=== PATIENT | female | born 1995 | race Caucasian/White ===

== ENCOUNTER 2021-01-12 22:31 | Inpatient (IN) | payer BC ==
[2021-01-12] MEDS ORDERED: Acetaminophen 325 MG Tab PO PRN (23:22)
[2021-01-12] MEDS ORDERED: Sodium Chloride 0.9% 10 ML Syringe FLUSH PRN (23:22)
[2021-01-12] MEDS ORDERED: Nalbuphine 10 MG/1 ML Vial IVPUSH PRN (23:22)
[2021-01-12] MEDS ORDERED: Oxytocin/Lactated Ringers 10 UNIT/1,000 ML BAG IV SCH (23:30)
[2021-01-13] MEDS: Lactated Ringers 1,000 ML IV SCH ×3 (00:22→11:22)
--- NOTE | 2021-01-13 00:29 | PCM.LDHP ---
L&D History of Present Illness - General Date of Service: 01/13/21 Admit Problem/Dx: Patient Status Order with Admit Dx/Problem 01/12/21 23:22 Patient Status [ADT] Routine Admission Diagnosis/Problem Admission Diagnosis/Problem 40 weeks gestation of Source of Information: Patient History Limitations: Reports: No Limitations - History of Present Illness Introduction:: Yane Sanders is a 25-year-old -0-0-1 female at 40 weeks 3 days (CONTRERAS ) by LMP consistent with an 11-week ultrasound who presents in active labor. Patient reports that she had been having contractions that started on Thursday evening and have been somewhat consistent since then. She states that earlier this evening the contractions became very irregular and were about 2 to 5 minutes apart for several hours. She reports that the contractions were getting much stronger and she was having difficulty walking or talking through them. She denies any leaking of fluid or vaginal bleeding. She reports good movement Timing/Duration: Reports: intermittent (contractions every 2-5 minutes), getting worse (starting around 7 PM) Location, : Reports: Lower back, Pelvic Quality: Reports: Pressure, Throbbing Severity: Severe Associated Symptoms: Denies: vaginal bleeding, vaginal discharge, vaginal fluid Present Illness Comments:: Yane Sanders is a 25-year-old -0-0-1 female at 40 weeks 3 days (CONTRERAS ) by LMP consistent with an 11-week ultrasound who presents in active labor. She has had routine care with Dr. Wen starting at 11 weeks gestatio nal age. Her has been overall uncomplicated except she did have COVID-19 infection in mid June 2020. She received flu shot on 11/08/2020. She received Tdap on 12/19/2020. Her anatomy ultrasound was normal. She was GBS negative on evaluation on 12/06/2020. She did not have a repeat evaluation of her GBS swab since then. Her care is complicated by: * History of section with her first done for arrest of dilation at 3 cm * History of preeclampsia with severe features and was on made for several days after delivery and first . 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 G1: 08/20/2018, 39 weeks 5 days, primary section, 6 pounds 13 ounces, female , spinal for anesthesia, preeclampsia with severe features after delivery and was treated with magnesium for multiple days due to severe features G2: Current labs Blood type: B+ Antibody screen: Negative First trimester hematocrit/hemoglobin: 38.3%/12.8 on 06/21/2020 Platelets: 197 on 06/21/2020 Urine culture: Negative Rubella status: Immune Hepatitis B surface antigen: Negative RPR: Negative Hepatitis C: Negative HIV: Negative Gonorrhea: Negative Chlamydia: Negative Anatomy ultrasound: Normal anatomy ultrasound, 55th percentile on 09/05/2020, no evidence of placenta previa One hour glucose tolerance test: 116 Second trimester hematocrit/hemoglobin: 33.7/11.0 on 10/11/2020 Platelets: 220 on 10/11/2020 GBS status: Negative on 12/06/2020 - Related Data Allergies/Adverse Reactions: Allergies Allergy/AdvReac Type Severity Reaction Status Date / Time doxycycline Allergy Other Verified 08/19/18 09:35 Home Medications: Home Meds Azelaic Acid [Finacea] 50 gm TP ASDIRECTED 08/19/18 [History] Clindamycin Phosphate [Cleocin T] 1 applic TP DAILY 08/19/18 [History] Pnv No.95/Ferrous Fum/Folic AC [ Tablet] 1 tab PO DAILY 08/19/18 [History] Acetaminophen/oxyCODONE [Percocet 325-5 MG] 1 tab PO Q4H PRN tablet 08/23/18 [Rx] Ibuprofen [Motrin] 800 mg PO Q8H PRN tablet 08/23/18 [Rx] Labetalol [Normodyne] 400 mg PO Q6H #72 tab 08/26/18 [Rx] Past Medical History - Past Health History Medical/Surgical History: Denies Medical/Surgical History Cardiovascular History: Reports: None Respiratory History: Reports: Asthma (Sports induced) Other Respiratory History: exercise induced asthma, not on medication. 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: Reports: : 2 Para: 1 Psychiatric History: Reports: Anxiety Other Dermatologic History: Acne - Past Surgical History Other HEENT Surgeries/Procedures: [place] teeth 2012 Female Surgical History: Reports: Section (x1 for arrest of dilation at 3 cm) Social & Family History - Family History Family Medical History: No Pertinent Family History Cardiac: Reports: Bypass, Hypertension, NE Other OBGYN Family History: Patient is a quadruplet Other Endocrine/Metabolic Family History: 2 sister and brother all heavy Oncologic: Reports: Breast, Lung, Ovarian - Tobacco Use Tobacco Use Status *Q: Never Tobacco User Tobacco Use Within Last Twelve Months: No - Tobacco Core Measures Tobacco Use/Smoking Within Last 30 Days: No Smokeless Tobacco Use in Last 30 Days: No - Caffeine Use Caffeine Use: Reports: Soda - Alcohol Use Alcohol Use History: No - Living Situation & Occupation Living situation: Reports: ('s name is Jasvir) Occupation: Unemployed H&P Review of Systems - Review of Systems: Review Of Systems: See Below General: Denies: Fever, Chills, Malaise, Fatigue HEENT: Denies: Headaches, Rhinitis, Post Nasal Drip, Sinus Congestion, Sore Throat, Visual Changes Pulmonary: Denies: Shortness of Breath, Wheezing, Pleuritic Chest Pain, Cough Cardiovascular: Denies: Chest Pain, Palpitations, Dyspnea on Exertion, Orthopnea Gastrointestinal: Reports: Diarrhea (Reports that she has been having loose stools for the last week). Denies: Abdominal Pain, Constipation, Nausea, Vomiting Genitourinary: Denies: Dysuria, Frequency, Burning, Pain, Urgency Musculoskeletal: Reports: Back Pain (and hip pain of ) Skin: Denies: Rash, Lesions Psychiatric: Denies: Depression, Anxiety L&D Exam - Exam Exam: See Below - Vital Signs Weight: 71.214 kg - OB Specific Contraction Duration (sec): 45-75 Contraction Frequency (min): 2-4 Contraction Intensity: Strong Movement: Active Heart Tones: Present Heart Tones per Min: 125 (+15 x 15 accelerations, no decelerations) Heart Rate (FHR) Variability: Moderate (6-25 bpm) Presentation: Vertex (By bedside ultrasound) Estimated Weight: 6.5-7 pounds by Daniel - Antoine Score Antoine Score Cervix Position: Anterior Antoine Score Consistency: Soft Antoine Score Effacement: >80% (80%) Antoine Score Dilation: 3-4 cm (4 cm) Antoine Score Infant's Station: -1 ,0 (-1) Antoine Score Total: 11 - Exam General: Alert, Oriented HEENT: Conjunctiva Clear, EOMI Neck: Supple, Trachea Midline Lungs: Clear to Auscultation, Normal Respiratory Effort Cardiovascular: Regular Rate, Regular Rhythm GI/Abdominal Exam: Soft, Non-Tender, No Distention, Other (gravid). No: Guarding, Rigid, Rebound Genitourinary: Normal external exam Extremities: Normal Inspection, No Pedal Edema Skin: Warm, Dry, Intact Psychiatric: Alert, Normal Affect, Normal Mood - Patient Data Lab Results Last 24 hrs: Laboratory Results - last 24 hr 01/12/21 01/12/21 Range/Units 23:38 23:38 WBC 9.59 (3.98-10.04) K/mm3 RBC 4.09 (3.98-5.22) M/mm3 Hgb 13.1 D (11.2-15.7) gm/dl Hct 38.7 (34.1-44.9) % MCV 94.6 (79.4-94.8) fl MCH 32.0 (25.6-32.2) pg MCHC 33.9 (32.2-35.5) g/dl RDW Std Deviation 45.2 (36.4-46.3) fL Plt Count 201 (182-369) K/mm3 MPV 11.5 (9.4-12.3) fl Neut % (Auto) 76.3 H (34.0-71.1) % Lymph % (Auto) 14.4 L (19.3-51.7) % [place] % (Auto) 8.4 (4.7-12.5) % Eos % (Auto) 0.6 L (0.7-5.8) Baso % (Auto) 0.1 (0.1-1.2) % Neut # (Auto) 7.31 H (1.56-6.13) K/mm3 Lymph # (Auto) 1.38 (1.18-3.74) K/mm3 [place] # (Auto) 0.81 H (0.24-0.36) K/mm3 Eos # (Auto) 0.06 (0.04-0.36) K/mm3 Baso # (Auto) 0.01 (0.01-0.08) K/mm3 Sodium 140 (136-145) mEq/L Potassium 4.0 (3.5-5.1) mEq/L Chloride 104 (98-107) mEq/L Carbon Dioxide 23 (21-32) mEq/L Anion Gap 17.0 H (5-15) BUN 12 (7-18) mg/dL Creatinine 0.8 (0.55-1.02) mg/dL Est Cr Clr Drug Dosing 87.38 mL/min Estimated GFR (MDRD) > 60 (>60) mL/min BUN/Creatinine Ratio 15.0 (14-18) Glucose 88 (70-99) mg/dL Calcium 8.9 (8.5-10.1) mg/dL Total Bilirubin 0.4 (0.2-1.0) mg/dL AST 22 (15-37) U/L ALT 29 (14-59) U/L Alkaline Phosphatase 205 H (46-116) U/L Total Protein 6.5 (6.4-8.2) g/dl Albumin 3.0 L (3.4-5.0) g/dl Globulin 3.5 gm/dL Albumin/Globulin Ratio 0.9 L (1-2) Result Diagrams: 01/12/21 23:38 01/12/21 23:38 - Problem List (1) 40 weeks gestation of SNOMED Code(s): 34398371 ICD Code: Z3A.40 - 40 WEEKS GESTATION OF Status: Acute Current Visit: Yes (2) History of delivery SNOMED Code(s): 308816963 ICD Code: Z98.891 - HISTORY OF UTERINE SCAR FROM PREVIOUS SURGERY Status: Acute Current Visit: Yes (3) History of pre-eclampsia SNOMED Code(s): 144202847760210 ICD Code: Z87.59 - PERSONAL HISTORY OF COMP OF PREG, CHLDBRTH AND THE PUERP Status: Acute Current Visit: Yes (4) History of pre-eclampsia in prior , currently in third trimester SNOMED Code(s): 011030305094376, 01487243, 489425426361720 ICD Code: O09.293 - SUPRVSN OF PREG W POOR REPRODCTV OR OBSTET HX, THIRD TRI Status: Acute Current Visit: Yes Problem List Initiated/Reviewed/Updated: Yes Orders Last 24hrs: Active Orders 24 hr Category Date Time Status Patient Status [ADT] Routine ADT 01/12/21 23:22 Active Activity as Tolerated [RC] PFP Care 01/12/21 23:22 Active Communication Order [RC] ASDIRECTED Care 01/12/21 23:22 Active Heart Tones [RC] ASDIRECTED Care 01/12/21 23:23 Active Non Stress Test [RC] PER UNIT ROUTINE Care 01/12/21 23:22 Active Notify Provider Vital Signs [RC] PRN Care 01/12/21 23:23 Active Notify Provider [RC] PFP Care 01/12/21 23:22 Active Notify Provider [RC] PRN Care 01/12/21 23:22 Active Peripheral IV Care [RC] . DIRECTED Care 01/12/21 23:23 Active Pump Management, Intrathecal [RC] ASDIRECTED Care 01/12/21 23:23 Active Urinary Catheter Assessment [RC] ASDIRECTED Care 01/12/21 23:22 Active Vital Signs [RC] PER UNIT ROUTINE Care 01/12/21 23:22 Active Regular Diet [DIET] Diet 01/12/21 Dinner Active PROTEIN/CREATININE RATIO,URINE [URCHEM] Routine Lab 01/12/21 23:22 Ordered RAPID PLASMA REAGIN,RPR [CHEM] Routine Lab 01/12/21 23:38 Received TYPE AND SCREEN [BBK] Routine Lab 01/12/21 23:38 Received Acetaminophen [TylenoL] Med 01/12/21 23:22 Active 650 mg PO Q6H PRN Lactated Ringers [Ringers, Lactated] 1,000 ml Med 01/12/21 23:30 Active IV ASDIRECTED Nalbuphine [Nubain] Med 01/12/21 23:22 Active 10 mg IVPUSH Q2H PRN Oxytocin/Lactated Ringers [Pitocin in LR 10 Units/1,000 Med 01/12/21 23:30 Active ML] 10 unit in 1,000 ml IV .CONTINUOUS Sodium Chloride 0.9% [Saline Flush] Med 01/12/21 23:22 Active 10 ml FLUSH ASDIRECTED PRN Electronic Heart Tones Ext w TOCO [WOMSER] Oth 01/12/21 23:22 Ordered Routine Electronic Heart Tones Internal [WOMSER] Per Unit Oth 01/12/21 23:22 Ordered Routine Peripheral IV Insertion Adult [OM.PC] Routine Oth 01/12/21 23:22 Ordered Resuscitation Status Routine Resus Stat 01/12/21 23:22 Ordered Medication Orders Acetaminophen (Acetaminophen 325 Mg Tab) 650 mg PO Q6H PRN PRN Reason: Pain (Mild 1-3) and fever Oxytocin/Lactated Ringer's (Pitocin In Lr 10 Units/1,000 Ml) 10 unit in 1,000 mls @ 100 mls/hr IV .CONTINUOUS RANDAL Lactated Ringer's (Ringers, Lactated) 1,000 mls @ 100 mls/hr IV ASDIRECTED RANDAL Nalbuphine HCl (Nalbuphine 10 Mg/1 Ml Vial) 10 mg IVPUSH Q2H PRN PRN Reason: Pain Sodium Chloride (Sodium Chloride 0.9% 10 Ml Syringe) 10 ml FLUSH ASDIRECTED PRN PRN Reason: Keep Vein Open Assessment/Plan Comment:: Yane Sanders is a 25-year-old -0-0-1 female at 40 weeks 3 days (CONTRERAS 12- 21) with active labor with cervix dilated 4 cm with complicated by history of section and desires trial of labor after section and history of preeclampsia in previous Refer to observation for spontaneous labor with cervical dilation of 4 cm after she had been 0 cm in the clinic this week Start Pitocin for augmentation of labor if she does not have continuing cervical change Continuous monitoring Place IV and have Lactated Ringer's at 125 ml/hr May have small amounts of regular diet Activity as tolerated May have epidural as desired Plans to breast-feed after delivery Patient counseled on risks, benefits and alternatives of trial of labor after section versus repeat section. Patient desires to proceed with trial of labor after section and consent form was signed. Anticipate vaginal delivery unless otherwise indicated Juarez Bass MD 12:37 AM 01/13/2021
[2021-01-13] MEDS ORDERED: diphenhydrAMINE 50 MG/ML SDV IVPUSH PRN (01:58)
[2021-01-13] MEDS ORDERED: fentaNYL 100 MCG/2 ML SDV EPIDUR PRN (01:58)
[2021-01-13] MEDS ORDERED: ePHEDrine 50 MG/ML SDV IVPUSH PRN (01:58)
[2021-01-13] MEDS: Bupivacaine/fentaNYL/NS 100 ML Bag EPIDUR PRN ×2 (02:10→11:21)
--- NOTE | 2021-01-13 03:33 | PCM.PREANE ---
Preanesthetic Assessment - Anesthesia/Transfusion/Family Hx Anesthesia History: Prior Anesthesia Without Reaction Transfusion History: No Prior Transfusion(s) Intubation History: Unknown - Review of Systems General: No Symptoms Pulmonary: No Symptoms Cardiovascular: No Symptoms Gastrointestinal: No Symptoms Neurological: No Symptoms Other: Reports: None - Physical Assessment Vital Signs: Last Vital Signs Temp 98.0 F 01/12/21 23:22 Pulse 78 01/12/21 23:22 Resp 16 01/12/21 23:22 BP 137/90 01/12/21 23:22 Pulse Ox 99 01/12/21 23:22 Height: 1.6 m Weight: 71.214 kg ASA Class: 2 Mental Status: Alert & Oriented x3 Airway Class: Mallampati = 1 Dentition: Reports: Normal Dentition Thyro-Mental Finger Breadths: 3 Mouth Opening Finger Breadths: 3 ROM/Head Extension: Full Lungs: Clear to Auscultation, Normal Respiratory Effort Cardiovascular: Regular Rate, Regular Rhythm - Lab Values: Laboratory Last Values WBC 9.59 K/mm3 (3.98-10.04) 01/12/21 23:38 RBC 4.09 M/mm3 (3.98-5.22) 01/12/21 23:38 Hgb 13.1 gm/dl (11.2-15.7) D 01/12/21 23:38 Hct 38.7 % (34.1-44.9) 01/12/21 23:38 MCV 94.6 fl (79.4-94.8) 01/12/21 23:38 MCH 32.0 pg (25.6-32.2) 01/12/21 23:38 MCHC 33.9 g/dl (32.2-35.5) 01/12/21 23:38 RDW Std Deviation 45.2 fL (36.4-46.3) 01/12/21 23:38 Plt Count 201 K/mm3 (182-369) 01/12/21 23:38 MPV 11.5 fl (9.4-12.3) 01/12/21 23:38 Neut % (Auto) 76.3 % (34.0-71.1) H 01/12/21 23:38 Lymph % (Auto) 14.4 % (19.3-51.7) L 01/12/21 23:38 [place] % (Auto) 8.4 % (4.7-12.5) 01/12/21 23:38 Eos % (Auto) 0.6 (0.7-5.8) L 01/12/21 23:38 Baso % (Auto) 0.1 % (0.1-1.2) 01/12/21 23:38 Neut # (Auto) 7.31 K/mm3 (1.56-6.13) H 01/12/21 23:38 Lymph # (Auto) 1.38 K/mm3 (1.18-3.74) 01/12/21 23:38 [place] # (Auto) 0.81 K/mm3 (0.24-0.36) H 01/12/21 23:38 Eos # (Auto) 0.06 K/mm3 (0.04-0.36) 01/12/21 23:38 Baso # (Auto) 0.01 K/mm3 (0.01-0.08) 01/12/21 23:38 Sodium 140 mEq/L (136-145) 01/12/21 23:38 Potassium 4.0 mEq/L (3.5-5.1) 01/12/21 23:38 Chloride 104 mEq/L (98-107) 01/12/21 23:38 Carbon Dioxide 23 mEq/L (21-32) 01/12/21 23:38 Anion Gap 17.0 (5-15) H 01/12/21 23:38 BUN 12 mg/dL (7-18) 01/12/21 23:38 Creatinine 0.8 mg/dL (0.55-1.02) 01/12/21 23:38 Est Cr Clr Drug Dosing 87.38 mL/min 01/12/21 23:38 Estimated GFR (MDRD) > 60 mL/min (>60) 01/12/21 23:38 BUN/Creatinine Ratio 15.0 (14-18) 01/12/21 23:38 Glucose 88 mg/dL (70-99) 01/12/21 23:38 Calcium 8.9 mg/dL (8.5-10.1) 01/12/21 23:38 Total Bilirubin 0.4 mg/dL (0.2-1.0) 01/12/21 23:38 AST 22 U/L (15-37) 01/12/21 23:38 ALT 29 U/L (14-59) 01/12/21 23:38 Alkaline Phosphatase 205 U/L (46-116) H 01/12/21 23:38 Total Protein 6.5 g/dl (6.4-8.2) 01/12/21 23:38 Albumin 3.0 g/dl (3.4-5.0) L 01/12/21 23:38 Globulin 3.5 gm/dL 01/12/21 23:38 Albumin/Globulin Ratio 0.9 (1-2) L 01/12/21 23:38 Ur Random Creatinine 215.0 mg/dL (30.0-125.0) H 01/13/21 00:21 U Random Total Protein 40.3 mg/dL (0.0-11.8) H 01/13/21 00:21 Protein/Creatinin Ratio 187.4 mg/g (0-149) H 01/13/21 00:21 SARS-CoV-2 RNA (SENTHIL) Negative (NEGATIVE) 01/13/21 00:18 Blood Type B POSITIVE 01/12/21 23:38 Gel Antibody Screen Negative 01/12/21 23:38 - Allergies Allergies/Adverse Reactions: Allergies Allergy/AdvReac Type Severity Reaction Status Date / Time doxycycline Allergy Other Verified 08/19/18 09:35 - Acknowledgements Anesthesia Type Planned: Epidural Pt an Appropriate Candidate for the Planned Anesthesia: Yes Alternatives and Risks of Anesthesia Discussed w Pt/Guardian: Yes Pt/Guardian Understands and Agrees with Anesthesia Plan: Yes PreAnesthesia Questionnaire - Past Health History Medical/Surgical History: Denies Medical/Surgical History Cardiovascular History: Reports: None Respiratory History: Reports: Asthma Other Respiratory History: exercise induced asthma, not on medication. 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: Neurological History: Reports: None Psychiatric History: Reports: Anxiety Other Dermatologic History: Acne - Past Surgical History Other HEENT Surgeries/Procedures: [place] teeth 2012 Female Surgical History: Reports: Section (x1 for arrest of dilation at 3 cm) - SUBSTANCE USE Tobacco Use Status *Q: Never Tobacco User Tobacco Use Within Last Twelve Months: No Second Hand Smoke Exposure: No Recreational Drug Use History: No - HOME MEDS Home Medications: Home Meds Azelaic Acid [Finacea] 50 gm TP ASDIRECTED 08/19/18 [History] Clindamycin Phosphate [Cleocin T] 1 applic TP DAILY 08/19/18 [History] Pnv No.95/Ferrous Fum/Folic AC [ Tablet] 1 tab PO DAILY 08/19/18 [History] Acetaminophen/oxyCODONE [Percocet 325-5 MG] 1 tab PO Q4H PRN tablet 08/23/18 [Rx] Ibuprofen [Motrin] 800 mg PO Q8H PRN tablet 08/23/18 [Rx] Labetalol [Normodyne] 400 mg PO Q6H #72 tab 08/26/18 [Rx] - CURRENT (IN HOUSE) MEDS Current Meds: Current Medications Acetaminophen (Acetaminophen 325 Mg Tab) 650 mg PO Q6H PRN PRN Reason: Pain (Mild 1-3) and fever Diphenhydramine HCl (Diphenhydramine 50 Mg/Ml Sdv) 25 mg IVPUSH Q6H PRN PRN Reason: pruritis Ephedrine Sulfate (Ephedrine 50 Mg/Ml Sdv) 5 mg IVPUSH ASDIRECTED PRN PRN Reason: Hypotension Fentanyl (Fentanyl 100 Mcg/2 Ml Sdv) 100 mcg EPIDUR Q3H PRN PRN Reason: Pain Last Admin: 01/13/21 02:09 Dose: 100 mcg Documented by: Fentanyl/Bupivacaine HCl (Bupivacaine/Fentanyl/Ns 100 Ml Bag) 100 ml EPIDUR ASDIRECTED PRN PRN Reason: Pain Last Admin: 01/13/21 02:10 Dose: 100 ml Documented by: Oxytocin/Lactated Ringer's (Pitocin In Lr 10 Units/1,000 Ml) 10 unit in 1,000 mls @ 100 mls/hr IV .CONTINUOUS RANDAL Lactated Ringer's (Ringers, Lactated) 1,000 mls @ 100 mls/hr IV ASDIRECTED RANDAL Last Admin: 01/13/21 02:04 Dose: 100 mls/hr Documented by: Nalbuphine HCl (Nalbuphine 10 Mg/1 Ml Vial) 10 mg IVPUSH Q2H PRN PRN Reason: Pain Sodium Chloride (Sodium Chloride 0.9% 10 Ml Syringe) 10 ml FLUSH ASDIRECTED PRN PRN Reason: Keep Vein Open
[2021-01-13] MEDS ORDERED: Oxytocin/Lactated Ringers 10 UNIT/1,000 ML BAG IV SCH ×2 (04:45→20:41)
--- NOTE | 2021-01-13 09:33 | PCM.PNLD ---
Labor Progress Note - VS & Meds Vital Signs: Last Vital Signs Temp 36.7 C 01/12/21 23:22 Pulse 78 01/12/21 23:22 Resp 16 01/12/21 23:22 BP 137/90 01/12/21 23:22 Pulse Ox 99 01/12/21 23:22 Active Medications: Current Medications Acetaminophen (Acetaminophen 325 Mg Tab) 650 mg PO Q6H PRN PRN Reason: Pain (Mild 1-3) and fever Diphenhydramine HCl (Diphenhydramine 50 Mg/Ml Sdv) 25 mg IVPUSH Q6H PRN PRN Reason: pruritis Ephedrine Sulfate (Ephedrine 50 Mg/Ml Sdv) 5 mg IVPUSH ASDIRECTED PRN PRN Reason: Hypotension Fentanyl (Fentanyl 100 Mcg/2 Ml Sdv) 100 mcg EPIDUR Q3H PRN PRN Reason: Pain Last Admin: 01/13/21 02:09 Dose: 100 mcg Documented by: Fentanyl/Bupivacaine HCl (Bupivacaine/Fentanyl/Ns 100 Ml Bag) 100 ml EPIDUR ASDIRECTED PRN PRN Reason: Pain Last Admin: 01/13/21 02:10 Dose: 100 ml Documented by: Oxytocin/Lactated Ringer's (Pitocin In Lr 10 Units/1,000 Ml) 10 unit in 1,000 mls @ 100 mls/hr IV .CONTINUOUS RANDAL Lactated Ringer's (Ringers, Lactated) 1,000 mls @ 100 mls/hr IV ASDIRECTED RANDAL Last Admin: 01/13/21 02:04 Dose: 100 mls/hr Documented by: Oxytocin/Lactated Ringer's (Pitocin In Lr 10 Units/1,000 Ml) 10 unit in 1,000 mls @ 12 mls/hr IV TITRATE RANDAL; Protocol Last Titration: 01/13/21 05:35 Dose: 4 munits/min, 24 mls/hr Documented by: Nalbuphine HCl (Nalbuphine 10 Mg/1 Ml Vial) 10 mg IVPUSH Q2H PRN PRN Reason: Pain Sodium Chloride (Sodium Chloride 0.9% 10 Ml Syringe) 10 ml FLUSH ASDIRECTED PRN PRN Reason: Keep Vein Open - Uterine Contractions Contraction Frequency (min): 2-5 Contraction Duration (sec): 45-75 Contraction Intensity: Strong Uterine Resting Tone: Soft - Monitoring Monitor Mode: Doppler/Auscultation Heart Rate (FHR) Baseline: 130 Heart Rate (FHR) Variability: Moderate (6-25 bpm) Accelerations: Present, 15x15 Decelerations: Variable, Recurrent (>50% x 20 min) Strip Review: Category II - Vaginal Exam Dilation (cm): 7 Effacement (Percent): 90 Station: 1 Cervical Position: Anterior Sterile Vaginal Exam Performed By: Juarez Bass Vaginal Exam Comment: Patient noted to have small amount of bright red blood with cervical exam. Patient underwent artificial rupture of membranes with return of small amount of clear fluid. Mother and infant tolerated procedure without difficulty. - Labor Progress (Free Text) Labor Progress: Yane Sanders is a 25-year-old -0-0-1 female at 40 weeks 3 days undergoing trial of labor after section with spontaneous labor Patient underwent artificial rupture membranes with return of small amount of clear fluid. Mother and infant tolerated procedure without difficulty. Patient making good progress overnight Patient had epidural placed and then had slowing of her contractions Patient started on Pitocin for augmentation of labor Patient was having mild range blood pressures prior to placement of the epidural that resolved afterwards. She has not had any mild range or severe range blood pressures since placement of the epidural Suspect that the blood pressures were due to pain response Continuous monitoring Anticipate vaginal delivery unless otherwise indicated Juarez Bass MD 9:33 AM 01/13/2021
[2021-01-13] MEDS ORDERED: Ondansetron 4 MG/2 ML SDV IVPUSH PRN (09:44)
[2021-01-13] MEDS ORDERED: Lidocaine 1.5% with EPINEPHrine 1:200,000 5 ML Amp ONE (18:00)
[2021-01-13] MEDS ORDERED: Witch Hazel Medicated Pads 40/Jar TOP PRN (20:41)
[2021-01-13] MEDS ORDERED: Hydrocortisone Acetate 25 MG Supp RECTAL PRN (20:41)
[2021-01-13] MEDS ORDERED: Benzocaine/Menthol 20%-0.5% Spray 78 GM Cannister TOP PRN (20:41)
[2021-01-13] MEDS ORDERED: Acetaminophen 325 MG Tab PO PRN (20:41)
[2021-01-13] MEDS ORDERED: Magnesium Hydroxide 400 MG/5 ML Susp 30 ML Cup PO PRN (20:41)
--- NOTE | 2021-01-13 20:46 | PCM.DEL ---
L & D Note - General Info Date of Service: 01/13/21 Mother's Due Date: 01/10/21 - Delivery Note Labor: Spontaneous, Augmented by ARM, Augmented by Oxytocin Delivery Outcome: Livebirth Delivery Method: Spontaneous Vaginal Delivery-Single Infant Delivery Mode: Vacuum Extraction Presentation: Right Occiput Anterior (KELLY) Nuchal Cord: None Prep: Povidone-Iodine (Betadine Anesthesia Type: Epidural Amniotic Fluid Description: Meconium Stained (noted at time of delivery of ) Episiotomy Type: None Laceration: 2nd Degree (midline perineal, repaired with 3-0 Vicryl), Labial (left medial labia minora connecting to left vaginal sidewall, repaired with 4-0 Vicryl), Vaginal (2nd degree left vaginal sidewall connecting to left labia minora laceration, repaired with 3-0 Vicryl) Suture type: Vicryl Suture size: 3-0 Placenta: Intact, Spontaneous Cord: 3 Vessels Estimated Blood Loss: 700 : Suctioned, Bulb Syringe, Stimulated, Warmed, [place] Used, Warmer Used Provider: Carlos Wen Score 1 min: 8 Score 5 min: 9 Second Stage Interventions: Reports: Pushing, Squatting, Pushing, Stirrups/Leg Supports Delivery Comments (Free Text/Narrative):: Stage I: Yane Sanders was admitted for active labor. On admission her cervix was dilated to 4 cm. She was GBS negative. Patient was counseled on the risks and benefits of a trial of labor after section versus repeat section. Patient desired to proceed with trial of labor after section. Consents were signed in labor and delivery room #31. She was given an epidural for anesthesia. After she received the epidural her contractions became more infrequent and less intense. She was started on Pitocin for augmentation of labor. She had artificial rupture of membranes with return of small amount of clear fluid. She made slow progression throughout HD #2. She became complete and began pushing in the afternoon of HD #2. Stage II: Patient was pushing for approximately 3 hours and began noticing that she was having decreased effort with her pushes. Patient had been coached through pushing for additional effort during this time. There were also changes in positions that were attempted. Patient was counseled on options including continued pushing, vacuum extraction assistance or repeat section. Tae rasmussen was counseled on the risks and benefits of the vacuum extractor delivery including failure of the vacuum extractor for delivery, injury to the , cephalohematoma and subgaleal hemorrhage. Patient was also counseled on increased risk of laceration and shoulder dystocia. Patient stated understanding and desired to proceed with use of the vacuum extractor. Patient gave verbal consent to proceed with the vacuum extractor. The patient was examined and noted to be in +2 station with the in direct OA position. A Martinez type vacuum extractor was then placed on the head at the flexion point and suction was applied. Vacuum suction was applied to 600 mmHg. During the next contraction the patient began pushing and traction was applied to the vacuum extractor. Patient pushed 4 times during this contraction and the head was able to be delivered. There were no pop offs. The vacuum extractor was removed at this time. Vacuum was applied for a total of approximately 40 seconds. On 01/13/2021 she had a vacuum-assisted vaginal delivery after section of a live female at 19:07. Apgars of 8 & 9. Weight of 3650 g (8 lbs 0.7 oz). Length of 21.0 inches. There was no nuchal cord. was delivered in KELLY position. The cord was doubly clamped and cut by father the infant had approximately 60 seconds of life. Infant was placed on mother's abdomen initially and then taken to the warmer for further resuscitation. At time of delivery there was noted to be meconium stained fluid Stage III: She had a spontaneous delivery of an intact placenta in [facility]. Three vessel cord. She was given pitocin and fundal massage. She had a second-degree midline perineal laceration that was repaired with 3-0 Vicryl. She had a second-degree left vaginal sidewall laceration that was repaired with 3-0 Vicryl and a connecting left medial labia minora laceration that was repaired with 4-0 Vicryl. Mom and baby were stable to recovery. EBL of 700 mL. Juarez Bass MD 8:45 PM 01/13/2021 Vacuum Extractor Progress Note - Alternative Labor Strategies Considered Alternative Labor Strategies Considered:: Reports: Yes Strategies Considered:: Reports: Contraction Intensity Adequate, Position Changes Used to Facilitate Rotation & Descent, Rest Indications Considered:: Reports: Yes Indications:: Reports: Shortening of 2nd Stage for Maternal Benefit (Patient reported exhaustion with pushing) Time Out:: Reports: Yes - Patient Prepared Patient Prepared:: Reports: Yes Informed Consent:: Reports: Verbal Risks: Reports: Yes Risks Include:: Reports: Laceration, Shoulder Dystocia, Maternal Injury, Other ( injury) Anesthesia/Analgesia Adequate:: Reports: Yes - Probability of Success High Probability of Success:: Reports: Yes Weight Estimated:: Reports: AGA Patient Diabetic:: Reports: No Pelvis Adequate:: Reports: Yes Position:: Direct occiput anterior Asynclitic:: Reports: No Station:: +2 - Application Time Maximum Application Time & Number of Pop-Offs Predetermined:: Reports: Yes Maximum Pressure Maintained in [place] (cm Hg):: 55 Total Application Time (min): *max=20min: 1 Number of Times Cup Disengaged:: 0 Type of Vacuum Used:: Reports: Cup: Martinez type Vacuum Extraction: Successful - Exit Strategy Exit strategy available:: Reports: Yes and resuscitation teams readily available:: Reports: Yes - General Info Date of Service: 01/13/21 - Patient Data Vitals - Most Recent: Last Vital Signs Temp 36.7 C 01/12/21 23:22 Pulse 78 01/12/21 23:22 Resp 16 01/12/21 23:22 BP 137/90 01/12/21 23:22 Pulse Ox 99 01/12/21 23:22 Weight - Most Recent: 71.214 kg I&O - Last 24 Hours: Intake & Output 01/13/21 01/13/21 01/13/21 06:59 14:59 22:59 Intake Total 1000 0 Output Total 700 Balance 1000 0 -700 Lab Results Last 24 Hours: Laboratory Results - last 24 hr 01/12/21 01/12/21 01/12/21 Range/Units 23:38 23:38 23:38 WBC 9.59 (3.98-10.04) K/mm3 RBC 4.09 (3.98-5.22) M/mm3 Hgb 13.1 D (11.2-15.7) gm/dl Hct 38.7 (34.1-44.9) % MCV 94.6 (79.4-94.8) fl MCH 32.0 (25.6-32.2) pg MCHC 33.9 (32.2-35.5) g/dl RDW Std Deviation 45.2 (36.4-46.3) fL Plt Count 201 (182-369) K/mm3 MPV 11.5 (9.4-12.3) fl Neut % (Auto) 76.3 H (34.0-71.1) % Lymph % (Auto) 14.4 L (19.3-51.7) % Mcculloch % (Auto) 8.4 (4.7-12.5) % Eos % (Auto) 0.6 L (0.7-5.8) Baso % (Auto) 0.1 (0.1-1.2) % Neut # (Auto) 7.31 H (1.56-6.13) K/mm3 Lymph # (Auto) 1.38 (1.18-3.74) K/mm3 Mcculloch # (Auto) 0.81 H (0.24-0.36) K/mm3 Eos # (Auto) 0.06 (0.04-0.36) K/mm3 Baso # (Auto) 0.01 (0.01-0.08) K/mm3 Sodium 140 (136-145) mEq/L Potassium 4.0 (3.5-5.1) mEq/L Chloride 104 (98-107) mEq/L Carbon Dioxide 23 (21-32) mEq/L Anion Gap 17.0 H (5-15) BUN 12 (7-18) mg/dL Creatinine 0.8 (0.55-1.02) mg/dL Est Cr Clr Drug Dosing 87.38 mL/min Estimated GFR (MDRD) > 60 (>60) mL/min BUN/Creatinine Ratio 15.0 (14-18) Glucose 88 (70-99) mg/dL Calcium 8.9 (8.5-10.1) mg/dL Total Bilirubin 0.4 (0.2-1.0) mg/dL AST 22 (15-37) U/L ALT 29 (14-59) U/L Alkaline Phosphatase 205 H (46-116) U/L Total Protein 6.5 (6.4-8.2) g/dl Albumin 3.0 L (3.4-5.0) g/dl Globulin 3.5 gm/dL Albumin/Globulin Ratio 0.9 L (1-2) Ur Random Creatinine (30.0-125.0) mg/dL U Random Total Protein (0.0-11.8) mg/dL Protein/Creatinin Ratio (0-149) mg/g SARS-CoV-2 RNA (SENTHIL) (NEGATIVE) Blood Type B POSITIVE Gel Antibody Screen Negative 01/13/21 01/13/21 Range/Units 00:18 00:21 WBC (3.98-10.04) K/mm3 RBC (3.98-5.22) M/mm3 Hgb (11.2-15.7) gm/dl Hct (34.1-44.9) % MCV (79.4-94.8) fl MCH (25.6-32.2) pg MCHC (32.2-35.5) g/dl RDW Std Deviation (36.4-46.3) fL Plt Count (182-369) K/mm3 MPV (9.4-12.3) fl Neut % (Auto) (34.0-71.1) % Lymph % (Auto) (19.3-51.7) % Mcculloch % (Auto) (4.7-12.5) % Eos % (Auto) (0.7-5.8) Baso % (Auto) (0.1-1.2) % Neut # (Auto) (1.56-6.13) K/mm3 Lymph # (Auto) (1.18-3.74) K/mm3 Mcculloch # (Auto) (0.24-0.36) K/mm3 Eos # (Auto) (0.04-0.36) K/mm3 Baso # (Auto) (0.01-0.08) K/mm3 Sodium (136-145) mEq/L Potassium (3.5-5.1) mEq/L Chloride (98-107) mEq/L Carbon Dioxide (21-32) mEq/L Anion Gap (5-15) BUN (7-18) mg/dL Creatinine (0.55-1.02) mg/dL Est Cr Clr Drug Dosing mL/min Estimated GFR (MDRD) (>60) mL/min BUN/Creatinine Ratio (14-18) Glucose (70-99) mg/dL Calcium (8.5-10.1) mg/dL Total Bilirubin (0.2-1.0) mg/dL AST (15-37) U/L ALT (14-59) U/L Alkaline Phosphatase (46-116) U/L Total Protein (6.4-8.2) g/dl Albumin (3.4-5.0) g/dl Globulin gm/dL Albumin/Globulin Ratio (1-2) Ur Random Creatinine 215.0 H (30.0-125.0) mg/dL U Random Total Protein 40.3 H (0.0-11.8) mg/dL Protein/Creatinin Ratio 187.4 H (0-149) mg/g SARS-CoV-2 RNA (SENTHIL) Negative (NEGATIVE) Blood Type Gel Antibody Screen Med Orders - Current: Current Medications Acetaminophen (Acetaminophen 325 Mg Tab) 650 mg PO Q6H PRN PRN Reason: Pain (Mild 1-3) and fever Diphenhydramine HCl (Diphenhydramine 50 Mg/Ml Sdv) 25 mg IVPUSH Q6H PRN PRN Reason: pruritis Ephedrine Sulfate (Ephedrine 50 Mg/Ml Sdv) 5 mg IVPUSH ASDIRECTED PRN PRN Reason: Hypotension Fentanyl (Fentanyl 100 Mcg/2 Ml Sdv) 100 mcg EPIDUR Q3H PRN PRN Reason: Pain Last Admin: 01/13/21 02:09 Dose: 100 mcg Documented by: Fentanyl/Bupivacaine HCl (Bupivacaine/Fentanyl/Ns 100 Ml Bag) 100 ml EPIDUR ASDIRECTED PRN PRN Reason: Pain Last Admin: 01/13/21 11:21 Dose: 100 ml Documented by: Oxytocin/Lactated Ringer's (Pitocin In Lr 10 Units/1,000 Ml) 10 unit in 1,000 mls @ 100 mls/hr IV .CONTINUOUS RANDAL Lactated Ringer's (Ringers, Lactated) 1,000 mls @ 100 mls/hr IV ASDIRECTED RANDAL Last Admin: 01/13/21 11:22 Dose: 100 mls/hr Documented by: Oxytocin/Lactated Ringer's (Pitocin In Lr 10 Units/1,000 Ml) 10 unit in 1,000 mls @ 12 mls/hr IV TITRATE RANDAL; Protocol Last Titration: 01/13/21 17:48 Dose: 10 munits/min, 60 mls/hr Documented by: Nalbuphine HCl (Nalbuphine 10 Mg/1 Ml Vial) 10 mg IVPUSH Q2H PRN PRN Reason: Pain Ondansetron HCl (Ondansetron 4 Mg/2 Ml Sdv) 4 mg IVPUSH Q8H PRN PRN Reason: Nausea/Vomiting Last Admin: 01/13/21 09:52 Dose: 4 mg Documented by: Sodium Chloride (Sodium Chloride 0.9% 10 Ml Syringe) 10 ml FLUSH ASDIRECTED PRN PRN Reason: Keep Vein Open - Exam Urinary Catheter Total Time: 0Days 16Hours - Problem List & Annotations (1) 40 weeks gestation of SNOMED Code(s): 85616328 Code(s): Z3A.40 - 40 WEEKS GESTATION OF Status: Acute Current Visit: Yes (2) History of delivery SNOMED Code(s): 516530160 Code(s): Z98.891 - HISTORY OF UTERINE SCAR FROM PREVIOUS SURGERY Status: Acute Current Visit: Yes (3) History of pre-eclampsia SNOMED Code(s): 062621129492494 Code(s): Z87.59 - PERSONAL HISTORY OF COMP OF PREG, CHLDBRTH AND THE PUERP Status: Acute Current Visit: Yes (4) History of pre-eclampsia in prior , currently in third trimester SNOMED Code(s): 535351599377347, 57964195, 976121624057868 Code(s): O09.293 - SUPRVSN OF PREG W POOR REPRODCTV OR OBSTET HX, THIRD TRI Status: Acute Current Visit: Yes (5) Vaginal delivery SNOMED Code(s): 610266890 Code(s): O80 - ENCOUNTER FOR FULL-TERM UNCOMPLICATED DELIVERY Status: Acute Current Visit: Yes (6) Vaginal delivery following previous section, delivered SNOMED Code(s): 389027131 Code(s): O34.219 - MATERNAL CARE FOR UNSP TYPE SCAR FROM PREVIOUS DEL Status: Acute Current Visit: Yes (7) Vacuum-assisted vaginal delivery SNOMED Code(s): 38475746113572001 Code(s): Z37.9 - OUTCOME OF DELIVERY, UNSPECIFIED Status: Acute Current Visit: Yes (8) Meconium in amniotic fluid SNOMED Code(s): 844707498 Code(s): P96.83 - MECONIUM STAINING Status: Acute Current Visit: Yes - Problem List Review Problem List Initiated/Reviewed/Updated: Yes - My Orders Last 24 Hours: My Active Orders 01/12/21 23:22 Patient Status [ADT] Routine Activity as Tolerated [RC] PFP Communication Order [RC] ASDIRECTED Non Stress Test [RC] PER UNIT ROUTINE Notify Provider [RC] PFP Notify Provider [RC] PRN Urinary Catheter Assessment [RC] ASDIRECTED Vital Signs [RC] PER UNIT ROUTINE Acetaminophen [TylenoL] 650 mg PO Q6H PRN Nalbuphine [Nubain] 10 mg IVPUSH Q2H PRN Sodium Chloride 0.9% [Saline Flush] 10 ml FLUSH ASDIRECTED PRN Electronic Heart Tones Ext w TOCO [WOMSER] Routine Electronic Heart Tones Internal [WOMSER] Per Unit Routine Peripheral IV Insertion Adult [OM.PC] Routine Resuscitation Status Routine 01/12/21 23:23 Heart Tones [RC] ASDIRECTED Notify Provider Vital Signs [RC] PRN Peripheral IV Care [RC] . DIRECTED Pump Management, Intrathecal [RC] ASDIRECTED 01/12/21 23:30 Lactated Ringers [Ringers, Lactated] 1,000 ml IV ASDIRECTED Oxytocin/Lactated Ringers [Pitocin in LR 10 Units/1,000 ML] 10 unit in 1,000 ml IV .CONTINUOUS 01/12/21 23:38 RAPID PLASMA REAGIN,RPR [CHEM] Routine 01/13/21 04:45 Oxytocin/Lactated Ringers [Pitocin in LR 10 Units/1,000 ML] 10 unit in 1,000 ml IV TITRATE 01/13/21 09:44 Ondansetron [Zofran] 4 mg IVPUSH Q8H PRN 01/13/21 20:20 Patient Status Manage Transfer [TRANSFER] Routine - Plan Plan:: Yane Sanders is a 25-year-old now -0-0-2 female status post vacuum- assisted vaginal delivery after section, PPD #0, with complicated by history of section and desires trial of labor after section and history of preeclampsia in previous Admit to inpatient following vacuum-assisted vaginal delivery after section Continue Pitocin per unit protocol following delivery of placenta and lactated Ringer's until tolerating regular diet Regular diet Vitals per unit routine Ibuprofen and Tylenol for pain control Assist with breast-feeding as needed Continue to monitor lochia Anticipate discharge home on day #1 or #2 depending on status Juarez Bass MD 8:45 PM 01/13/2021
[2021-01-13] MEDS: Docusate Sodium 100 MG Cap PO PRN (22:19)
[2021-01-13] MEDS: Ibuprofen 600 MG Tab PO PRN (22:19)
[2021-01-14] MEDS ORDERED: Ferrous Sulfate 324 MG Tab.EC PO SCH (07:00)
--- NOTE | 2021-01-14 09:48 | PCM48HPAN ---
Post Anesthesia Note - EVALUATION WITHIN 48HRS OF ANESTHETIC Vital Signs in Normal Range: Yes Patient Participated in Evaluation: Yes Respiratory Function Stable: Yes Airway Patent: Yes Cardiovascular Function Stable: Yes Hydration Status Stable: Yes Pain Control Satisfactory: Yes Nausea and Vomiting Control Satisfactory: Yes Mental Status Recovered: Yes Vital Signs: Last Vital Signs Temp 97.7 F 01/14/21 02:55 Pulse 101 H 01/14/21 02:55 Resp 16 01/14/21 02:55 BP 117/72 01/14/21 02:55 Pulse Ox 95 01/14/21 02:55 - COMMENTS/OBSERVATIONS Free Text/Narrative:: Patient resting in bed holding baby when visiting with patient. Patient stated that she was "very happy" with her epidural and labor experience. Patient complained of mild back pain in epidural placement site but is controlled and has not gotten worse. Discussed signs and symptoms of infection, post-dural puncture headaches, post- depression, and if patient experiences increased back discomfort. Encouraged patient if any of those signs or symptoms develop to contact OB/Anesthesia so the patient can be treated accordingly if needed. Patient verbalized understanding. Patient did not voice any questions or concerns at this time. Kena Castellanos, QUALITY REVIEWER
[2021-01-14] MEDS: Ibuprofen 600 MG Tab PO PRN ×2 (09:57→20:08)
--- NOTE | 2021-01-14 11:16 | PCM.SN.2 ---
- Free Text/Narrative Note: Post Progress Note PPD #1 Subjective: Doing well overall. Ambulating without difficulty. Denies any significant lightheadedness or shortness of breath. She does have some lightheadedness when standing in the shower for extended period of time. Has not had any significant difficulty with ambulation. Lochia minimal. Voiding without difficulty. Tolerating regular diet without nausea or vomiting. Pain controlled with oral medications. Breast-feeding with minimal difficulty. Objective: Vitals: Vital Signs - 24 hr 01/14/21 02:55 Temperature 36.5 C Pulse, 101 H Peripheral Respiratory 16 Rate Blood Pressure 117/72 O2 Sat by Pulse 95 Oximetry Physical Exam General: Alert and oriented, no acute distress Lungs: Clear to auscultation bilaterally Heart: Regular rate and rhythm Abdomen: Soft, minimal appropriate tenderness, non-distended, fundus midline, nontender, and 1 fingerbreadth below the umbilicus Extremities: No edema in bilateral lower extremities, no calf tenderness bilaterally Laboratory Results - last 24 hr 01/12/21 01/14/21 Range/Units 23:38 05:00 WBC 13.64 H (3.98-10.04) K/mm3 RBC 2.38 L (3.98-5.22) M/mm3 Hgb 7.6 L D (11.2-15.7) gm/dl Hct 22.9 L (34.1-44.9) % MCV 96.2 H (79.4-94.8) fl MCH 31.9 (25.6-32.2) pg MCHC 33.2 (32.2-35.5) g/dl RDW Std Deviation 45.1 (36.4-46.3) fL Plt Count 192 (182-369) K/mm3 MPV 10.8 (9.4-12.3) fl RPR Non-reactive (NONREACTIVE) ASSESSMENT: 25-year-old female -0-0-2 s/p normal vaginal delivery after section PPD #1, complicated by history of section and history of preeclampsia in previous PLAN: Doing well Breast-feeding with minimal difficulty. Assist as needed Lochia minimal. Continue to monitor for appropriate lochia. Continue routine care No significant evidence of acute blood loss anemia that would require blood transfusion. Patient's hemoglobin was down to 7.6 this morning. Patient states that she had some mild lightheadedness with extended standing while showering. She has not had any significant difficulty with ambulation. Increase iron supplementation to 3 times daily with meals Anticipate discharge home today Juarez Bass MD 11:15 AM 01/14/2021
--- NOTE | 2021-01-14 11:21 | PCM.DCSUM1 ---
Discharge Summary - Hospital Course Free Text/Narrative:: - General Info Date of Service: 01/13/21 Mother's Due Date: 01/10/21 - Delivery Note Labor: Spontaneous, Augmented by ARM, Augmented by Oxytocin Delivery Outcome: Livebirth Delivery Method: Spontaneous Vaginal Delivery-Single Infant Delivery Mode: Vacuum Extraction Presentation: Right Occiput Anterior (KELLY) Nuchal Cord: None Prep: Povidone-Iodine (Betadine Anesthesia Type: Epidural Amniotic Fluid Description: Meconium Stained (noted at time of delivery of infant) Episiotomy Type: None Laceration: 2nd Degree (midline perineal, repaired with 3-0 Vicryl), Labial (left medial labia minora connecting to left vaginal sidewall, repaired with 4-0 Vicryl), Vaginal (2nd degree left vaginal sidewall connecting to left labia minora laceration, repaired with 3-0 Vicryl) Suture type: Vicryl Suture size: 3-0 Placenta: Intact, Spontaneous Cord: 3 Vessels Estimated Blood Loss: 700 [place]: Suctioned, Bulb Syringe, Stimulated, Warmed, [place] Used, Warmer Used Provider: Carlos Wen Score 1 min: 8 Score 5 min: 9 Second Stage Interventions: Reports: Pushing, Squatting, Pushing, Stirrups/Leg Supports Delivery Comments (Free Text/Narrative):: Stage I: Yane Sanders was admitted for active labor. On admission her cervix was dilated to 4 cm. She was GBS negative. Patient was counseled on the risks and benefits of a trial of labor after section versus repeat section. Patient desired to proceed with trial of labor after section. Consents were signed in labor and delivery room #31. She was given an epidural for anesthesia. After she received the epidural her contractions became more infrequent and less intense. She was started on Pitocin for augmentation of labor. She had artificial rupture of membranes with return of small amount of clear fluid. She made slow progression throughout HD #2. She became complete and began pushing in the afternoon of HD #2. Stage II: Patient was pushing for approximately 3 hours and began noticing that she was having decreased effort with her pushes. Patient had been coached through pushing for additional effort during this time. There were also changes in positions that were attempted. Patient was counseled on options including continued pushing, vacuum extraction assistance or repeat section. Patient was counseled on the risks and benefits of the vacuum extractor delivery including failure of the vacuum extractor for delivery, injury to the , cephalohematoma and subgaleal hemorrhage. Patient was also counseled on increased risk of laceration and shoulder dystocia. Patient stated understanding and desired to proceed with use of the vacuum extractor. Patient gave verbal consent to proceed with the vacuum extractor. The patient was examined and noted to be in +2 station with the infant in direct OA position. A Martinez type vacuum extractor was then placed on the head at the flexion point and suction was applied. Vacuum suction was applied to 600 mmHg. During the next contraction the patient began pushing and traction was applied to the vacuum extractor. Patient pushed 4 times during this contraction and the head was able to be delivered. There were no pop offs. The vacuum extractor was removed at this time. Vacuum was applied for a total of approximately 40 seconds. On 01/13/2021 she had a vacuum-assisted vaginal delivery after section of a live female at 19:07. Apgars of 8 & 9. Weight of 3650 g (8 lbs 0.7 oz). Length of 21.0 inches. There was no nuchal cord. was delivered in KELLY position. The cord was doubly clamped and cut by father the had approximately 60 seconds of life. Infant was placed on mother's abdomen initially and then taken to the warmer for further resuscitation. At time of delivery there was noted to be meconium stained fluid Stage III: She had a spontaneous delivery of an intact placenta in Polina presentation. Three vessel cord. She was given pitocin and fundal massage. She had a second-degree midline perineal laceration that was repaired with 3-0 Vicryl. She had a second-degree left vaginal sidewall laceration that was repaired with 3-0 Vicryl and a connecting left medial labia minora laceration that was repaired with 4-0 Vicryl. Mom and baby were stable to recovery. EBL of 700 mL. Diagnosis: Stroke: No - Discharge Data Discharge Date: 01/14/21 Discharge Disposition: Home, Self-Care 01 Condition: Good - Referral to Home Health Primary Care Physician: Carlos Wen MD - Discharge Diagnosis/Problem(s) (1) 40 weeks gestation of SNOMED Code(s): 02118109 ICD Code: Z3A.40 - 40 WEEKS GESTATION OF Status: Acute Current Visit: Yes (2) History of delivery SNOMED Code(s): 129103115 ICD Code: Z98.891 - HISTORY OF UTERINE SCAR FROM PREVIOUS SURGERY Status: Acute Current Visit: Yes (3) History of pre-eclampsia SNOMED Code(s): 461778568753255 ICD Code: Z87.59 - PERSONAL HISTORY OF COMP OF PREG, CHLDBRTH AND THE PUERP Status: Acute Current Visit: Yes (4) History of pre-eclampsia in prior , currently in third trimester SNOMED Code(s): 252973076842708, 50104286, 124244853321612 ICD Code: O09.293 - SUPRVSN OF PREG W POOR REPRODCTV OR OBSTET HX, THIRD TRI Status: Acute Current Visit: Yes (5) Vaginal delivery SNOMED Code(s): 038298551 ICD Code: O80 - ENCOUNTER FOR FULL-TERM UNCOMPLICATED DELIVERY Status: Acute Current Visit: Yes (6) Vaginal delivery following previous section, delivered SNOMED Code(s): 149860362 ICD Code: O34.219 - MATERNAL CARE FOR UNSP TYPE SCAR FROM PREVIOUS D EL Status: Acute Current Visit: Yes (7) Vacuum-assisted vaginal delivery SNOMED Code(s): 97998860336715262 ICD Code: Z37.9 - OUTCOME OF DELIVERY, UNSPECIFIED Status: Acute Current Visit: Yes (8) Meconium in amniotic fluid SNOMED Code(s): 936129905 ICD Code: P96.83 - MECONIUM STAINING Status: Acute Current Visit: Yes - Patient Summary/Data Complications: None Consults: None Hospital Course: Yane Sanders was admitted for active labor. On admission her cervix was dilated to 4 cm. She was GBS negative.she was given an epidural for anesthesia she was given pitocin for augmentation. She had artificial rupture of membranes with clear fluid. She progressed to complete and began pushing. Patient had been pushing for approximately 3 hours and noted that she was having decreased energy and effort with pushing. She desired to proceed with vacuum extraction delivery after discussion of the risks and benefits. Patient gave verbal consent to proceed with vacuum extractor delivery. A Martinez type vacuum extractor was placed without significant difficulty. was noted to be at +2 station in direct OA position. Vacuum suction was applied to 600 mmHg. With the next contraction the was able to be delivered over the course of 4 pressures during the contraction. There were no pop offs. The vacuum was applied for a total of 40 seconds. On 01/13/2021 she had a vacuum-assisted vaginal delivery after section of a live female at 19:07. Apgars of 8 and 9. Weight of 3650 g (8 pounds 0.7 ounces). She is noted to have an EBL of approximately 700 mL at time of delivery. Her course was uneventful. Her pain was well controlled and she had minimal lochia. In the morning of PPD #1 she had a CBC done that showed a hemoglobin of 7.6. Patient was not having any significant symptoms from this acute blood loss anemia. No evidence of need for blood transfusion at this time. She was ambulating, tolerating a regular diet and voiding normally. She was breast-feeding with minimal difficulty. She was afebrile and her hematocrit was 22.9 on PPD #1. She desired to be discharged home in the evening of PPD #1. Her blood type is B+. - Patient Instructions Diet: Regular Diet as Tolerated Activity: Apply Ice, As Tolerated Activity, Other: Nothing in the vagina for 6 weeks Driving: May Drive Today Showering/Bathing: May Shower Notify Provider of: Fever, Increased Pain, Swelling and Redness, Drainage, Nausea and/or Vomiting Other/Special Instructions: Please contact your physician's office if you have heavy vaginal bleeding enough to soak a pad in less than an hour for several hours. Monitor for any signs of an infection in the breasts with severe pain or redness of the breast. - Discharge Plan *PRESCRIPTION DRUG MONITORING PROGRAM REVIEWED*: Not Applicable *COPY OF PRESCRIPTION DRUG MONITORING REPORT IN PATIENT NAT: Not Applicable Home Medications: Home Meds Azelaic Acid [Finacea] 50 gm TP ASDIRECTED 08/19/18 [History] Pnv No.95/Ferrous Fum/Folic AC [ Tablet] 1 tab PO DAILY 08/19/18 [History] Acetaminophen [Tylenol] 650 mg PO Q6H PRN tablet 01/14/21 [Rx] Benzocaine/Menthol [Dermoplast Pain Relief 20%-0.5% [place]] 1 spray TOP ASDIRECTED PRN canister 01/14/21 [Rx] Docusate Sodium [Colace] 100 mg PO BID PRN cap 01/14/21 [Rx] Ferrous Sulfate 324 mg PO TIDMEALS tab.ec 01/14/21 [Rx] Hydrocortisone Acetate [Anucort-HC] 25 mg RECTAL BID PRN supp 01/14/21 [Rx] Ibuprofen [Motrin] 600 mg PO Q6H PRN tablet 01/14/21 [Rx] johnathan Yin [Tucks] 1 pad TOP ASDIRECTED PRN pad 01/14/21 [Rx] Patient Handouts: Vacuum-Assisted Vaginal Delivery, Care of a Perineal Tear, Care After Vaginal Delivery Referrals: Carlos Wen MD [Primary Care Provider] - (Follow-up in 2 to 3 weeks for routine visit or earlier as needed) - Discharge Summary/Plan Comment DC Time >30 min.: No Total # of Minutes for Discharge Time: 15 minutes - Patient Data Vitals - Most Recent: Last Vital Signs Temp 36.5 C 01/14/21 02:55 Pulse 101 H 01/14/21 02:55 Resp 16 01/14/21 02:55 BP 117/72 01/14/21 02:55 Pulse Ox 95 01/14/21 02:55 Weight - Most Recent: 71.214 kg I&O - Last 24 hours: Intake & Output 01/13/21 01/14/21 01/14/21 22:59 06:59 14:59 Intake Total 1700 Output Total 700 122 Balance -700 1578 Lab Results - Last 24 hrs: Laboratory Results - last 24 hr 01/12/21 01/14/21 Range/Units 23:38 05:00 WBC 13.64 H (3.98-10.04) K/mm3 RBC 2.38 L (3.98-5.22) M/mm3 Hgb 7.6 L D (11.2-15.7) gm/dl Hct 22.9 L (34.1-44.9) % MCV 96.2 H (79.4-94.8) fl MCH 31.9 (25.6-32.2) pg MCHC 33.2 (32.2-35.5) g/dl RDW Std Deviation 45.1 (36.4-46.3) fL Plt Count 192 (182-369) K/mm3 MPV 10.8 (9.4-12.3) fl RPR Non-reactive (NONREACTIVE) Med Orders - Current: Current Medications Acetaminophen (Acetaminophen 325 Mg Tab) 650 mg PO Q6H PRN PRN Reason: mild pain or fever Last Admin: 01/14/21 02:50 Dose: 650 mg Documented by: Benzocaine/Menthol (Benzocaine/Menthol 20%-0.5% [place] 78 Gm Cannister) 0 gm TOP ASDIRECTED PRN PRN Reason: Perineal Comfort Measure Last Admin: 01/13/21 22:20 Dose: 1 applic Documented by: Docusate Sodium (Docusate Sodium 100 Mg Cap) 100 mg PO BID PRN PRN Reason: Constipation Last Admin: 01/13/21 22:19 Dose: 100 mg Documented by: Ferrous Sulfate (Ferrous Sulfate 324 Mg Tab.Ec) 324 mg PO TIDMEALS RANDAL Hydrocortisone Acetate (Hydrocortisone Acetate 25 Mg Supp) 25 mg RECTAL BID PRN PRN Reason: Hemorrhoid pain Oxytocin/Lactated Ringer's (Pitocin In Lr 10 Units/1,000 Ml) 10 unit in 1,000 mls @ 100 mls/hr IV TITRATE RANDAL; Protocol Ibuprofen (Ibuprofen 600 Mg Tab) 600 mg PO Q6H PRN PRN Reason: Mild pain or fever Last Admin: 01/14/21 09:57 Dose: 600 mg Documented by: Magnesium Hydroxide (Magnesium Hydroxide 400 Mg/5 Ml Susp 30 Ml Cup) 30 ml PO BEDTIME PRN PRN Reason: Constipation Prenat Multivit/[place]/Iron/Folic Ac ( Multivitamin With Calcium/Folic Acid/Iron Tab) 1 each PO DAILY [facility] [place] ([place] Medicated Pads 40/Jar) 1 pad TOP ASDIRECTED PRN PRN Reason: Perineal Comfort Measure Last Admin: 01/13/21 22:20 Dose: 1 applic Documented by: Discontinued Medications Acetaminophen (Acetaminophen 325 Mg Tab) 650 mg PO Q6H PRN PRN Reason: Pain (Mild 1-3) and fever Diphenhydramine HCl (Diphenhydramine 50 Mg/Ml Sdv) 25 mg IVPUSH Q6H PRN PRN Reason: pruritis Ephedrine Sulfate (Ephedrine 50 Mg/Ml Sdv) 5 mg IVPUSH ASDIRECTED PRN PRN Reason: Hypotension Fentanyl (Fentanyl 100 Mcg/2 Ml Sdv) 100 mcg EPIDUR Q3H PRN PRN Reason: Pain Last Admin: 01/13/21 02:09 Dose: 100 mcg Documented by: Fentanyl/Bupivacaine HCl (Bupivacaine/Fentanyl/Ns 100 Ml Bag) 100 ml EPIDUR ASDIRECTED PRN PRN Reason: Pain Last Admin: 01/13/21 11:21 Dose: 100 ml Documented by: Ferrous Sulfate (Ferrous Sulfate 324 Mg Tab.Ec) 324 mg PO WITHBREAKFAST RANDAL Last Admin: 01/14/21 09:59 Dose: 324 mg Documented by: Oxytocin/Lactated Ringer's (Pitocin In Lr 10 Units/1,000 Ml) 10 unit in 1,000 mls @ 100 mls/hr IV .CONTINUOUS RANDAL Lactated Ringer's (Ringers, Lactated) 1,000 mls @ 100 mls/hr IV ASDIRECTED RANDAL Last Admin: 01/13/21 11:22 Dose: 100 mls/hr Documented by: Oxytocin/Lactated Ringer's (Pitocin In Lr 10 Units/1,000 Ml) 10 unit in 1,000 mls @ 12 mls/hr IV TITRATE RANDAL; Protocol Last Titration: 01/13/21 17:48 Dose: 10 munits/min, 60 mls/hr Documented by: Lidocaine/Epinephrine (Lidocaine 1.5% With Epinephrine 1:200,000 5 Ml Amp) 5 ml .ROUTE .[facility] ONE Stop: 01/13/21 18:01 Nalbuphine HCl (Nalbuphine 10 Mg/1 Ml Vial) 10 mg IVPUSH Q2H PRN PRN Reason: Pain Ondansetron HCl (Ondansetron 4 Mg/2 Ml Sdv) 4 mg IVPUSH Q8H PRN PRN Reason: Nausea/Vomiting Last Admin: 01/13/21 09:52 Dose: 4 mg Documented by: Sodium Chloride (Sodium Chloride 0.9% 10 Ml Syringe) 10 ml FLUSH ASDIRECTED PRN PRN Reason: Keep Vein Open
[2021-01-14] MEDS: Ferrous Sulfate 324 MG Tab.EC PO SCH ×2 (13:16→20:09)
[2021-01-14] MEDS: Prenatal Multivitamin with Calcium/Folic Acid/Iron Tab PO SCH (13:16)
[2021-01-14] MEDS: Docusate Sodium 100 MG Cap PO PRN ×2 (13:17→20:08)
[2021-01-15] MEDS: Ibuprofen 600 MG Tab PO PRN (10:26)
[2021-01-15] MEDS: Prenatal Multivitamin with Calcium/Folic Acid/Iron Tab PO SCH (10:28)
[2021-01-15] MEDS: Docusate Sodium 100 MG Cap PO PRN (10:28)
[2021-01-15] MEDS: Ferrous Sulfate 324 MG Tab.EC PO SCH ×2 (10:28→14:41)
--- NOTE | 2021-01-15 12:09 | PCM.DCSUM1 ---
Discharge Summary - Hospital Course Free Text/Narrative:: Stage I: Yane Sanders was admitted for active labor. On admission her cervix was dilated to 4 cm. She was GBS negative. Patient was counseled on the risks and benefits of a trial of labor after section versus repeat section. Patient desired to proceed with trial of labor after section. Consents were signed in labor and delivery room #31. She was given an epidural for anesthesia. After she received the epidural her contractions became more infrequent and less intense. She was started on Pitocin for augmentation of labor. She had artificial rupture of membranes with return of small amount of clear fluid. She made slow progression throughout HD #2. She became complete and began pushing in the afternoon of HD #2. Stage II: Patient was pushing for approximately 3 hours and began noticing that she was having decreased effort with her pushes. Patient had been coached through pushing for additional effort during this time. There were also changes in positions that were attempted. Patient was counseled on options including continued pushing, vacuum extraction assistance or repeat section. Patient was counseled on the risks and benefits of the vacuum extractor delivery including failure of the vacuum extractor for delivery, injury to the infant, cephalohematoma and subgaleal hemorrhage. Patient was also counseled on increased risk of laceration and shoulder dystocia. Patient stated understanding and desired to proceed with use of the vacuum extractor. Patient gave verbal consent to proceed with the vacuum extractor. The patient was examined and noted to be in +2 station with the infant in direct OA position. A Martinez type vacuum extractor was then placed on the head at the flexion point and suction was applied. Vacuum suction was applied to 600 mmHg. During the next contraction the patient began pushing and traction was applied to the vacuum extractor. Patient pushed 4 times during this contraction and the head was able to be delivered. There were no pop offs. The vacuum extractor was removed at this time. Vacuum was applied for a total of approximately 40 seconds. On 01/13/2021 she had a vacuum-assisted vaginal delivery after section of a live female infant at 19:07. Apgars of 8 & 9. Weight of 3650 g (8 lbs 0.7 oz). Length of 21.0 inches. There was no nuchal cord. Infant was delivered in KELLY position. The cord was doubly clamped and cut by father the infant had ap proximately 60 seconds of life. was placed on mother's abdomen initially and then taken to the warmer for further resuscitation. At time of delivery there was noted to be meconium stained fluid Stage III: She had a spontaneous delivery of an intact placenta in [place] presentation. Three vessel cord. She was given pitocin and fundal massage. She had a second-degree midline perineal laceration that was repaired with 3-0 Vicryl. She had a second-degree left vaginal sidewall laceration that was repaired with 3-0 Vicryl and a connecting left medial labia minora laceration that was repaired with 4-0 Vicryl. Mom and baby were stable to recovery. EBL of 700 mL. patient has done well. She is nursing without problems, ambulating well, has minimal lochia and is voiding without concerns. Her vital signs been stable throughout the period. She is desiring discharge home. Diagnosis: Stroke: No - Discharge Data Discharge Date: 01/15/21 Discharge Disposition: Home, Self-Care 01 Condition: Good - Referral to Home Health Primary Care Physician: Carlos Wen MD - Patient Instructions Diet: Regular Diet as Tolerated (Nursing diet with increased calories and calcium as recommended) Activity: Apply Ice, As Tolerated Activity, Other: Nothing in the vagina for 6 weeks Driving: May Drive Today Showering/Bathing: May Shower Notify Provider of: Fever, Increased Pain, Swelling and Redness, Drainage, Nausea and/or Vomiting Other/Special Instructions: Please contact your physician's office if you have heavy vaginal bleeding enough to soak a pad in less than an hour for several hours. Monitor for any signs of an infection in the breasts with severe pain or redness of the breast. - Discharge Plan *PRESCRIPTION DRUG MONITORING PROGRAM REVIEWED*: Not Applicable *COPY OF PRESCRIPTION DRUG MONITORING REPORT IN PATIENT NAT: Not Applicable Home Medications: Home Meds Azelaic Acid [Finacea] 50 gm TP ASDIRECTED 08/19/18 [History] Pnv No.95/Ferrous Fum/Folic AC [ Tablet] 1 tab PO DAILY 08/19/18 [History] Acetaminophen [Tylenol] 650 mg PO Q6H PRN tablet 01/14/21 [Rx] Benzocaine/Menthol [Dermoplast Pain Relief 20%-0.5% [place]] 1 spray TOP ASDIRECTED PRN canister 01/14/21 [Rx] Docusate Sodium [Colace] 100 mg PO BID PRN cap 01/14/21 [Rx] Ferrous Sulfate 324 mg PO TIDMEALS tab.ec 01/14/21 [Rx] Hydrocortisone Acetate [Anucort-HC] 25 mg RECTAL BID PRN supp 01/14/21 [Rx] Ibuprofen [Motrin] 600 mg PO Q6H PRN tablet 01/14/21 [Rx] anisa Olson [Tucks] 1 pad TOP ASDIRECTED PRN pad 01/14/21 [Rx] Patient Handouts: Vacuum-Assisted Vaginal Delivery, and Breast Care, Breast Engorgement, Breast Pumping Tips, [id number], Care of a Perineal Tear, Care After Vaginal Delivery Referrals: Carlos Wen MD [Primary Care Provider] - (Follow-up in 2 to 3 weeks for routine visit or earlier as needed) - Discharge Summary/Plan Comment DC Time >30 min.: No Total # of Minutes for Discharge Time: 10 Discharge Summary/Plan Comment: Discharge instructions: 1. Discharge home 2. Diet, activity and follow-up discussed with patient. Recommend nursing diet with increased calories and calcium. 3. Precautions given concern increased pain, bleeding, temperature, signs/symptoms of DVT/PE. 4. Medications per home medication was printed, discussed with and given to the patient. 5. Return to clinic-Dr. Wen[facility] in 2 weeks. Diagnosis: Term -delivered Condition: Good - Patient Data Vitals - Most Recent: Last Vital Signs Temp 36.2 C 01/15/21 02:57 Pulse 80 01/15/21 02:57 Resp 14 01/15/21 02:57 BP 127/78 01/15/21 02:57 Pulse Ox 98 01/15/21 02:57 Weight - Most Recent: 71.214 kg I&O - Last 24 hours: Intake & Output 01/14/21 01/15/21 01/15/21 22:59 06:59 14:59 Intake Total 320 Balance 320 Med Orders - Current: Current Medications Acetaminophen (Acetaminophen 325 Mg Tab) 650 mg PO Q6H PRN PRN Reason: mild pain or fever Last Admin: 01/14/21 02:50 Dose: 650 mg Documented by: Benzocaine/Menthol (Benzocaine/Menthol 20%-0.5% [place] 78 Gm Cannister) 0 gm TOP ASDIRECTED PRN PRN Reason: Perineal Comfort Measure Last Admin: 01/13/21 22:20 Dose: 1 applic Documented by: Docusate Sodium (Docusate Sodium 100 Mg Cap) 100 mg PO BID PRN PRN Reason: Constipation Last Admin: 01/15/21 10:28 Dose: 100 mg Documented by: Ferrous Sulfate (Ferrous Sulfate 324 Mg Tab.Ec) 324 mg PO TIDMEALS RANDAL Last Admin: 01/15/21 10:28 Dose: 324 mg Documented by: Hydrocortisone Acetate (Hydrocortisone Acetate 25 Mg Supp) 25 mg RECTAL BID PRN PRN Reason: Hemorrhoid pain Oxytocin/Lactated Ringer's (Pitocin In Lr 10 Units/1,000 Ml) 10 unit in 1,000 mls @ 100 mls/hr IV TITRATE RANDAL; Protocol Ibuprofen (Ibuprofen 600 Mg Tab) 600 mg PO Q6H PRN PRN Reason: Mild pain or fever Last Admin: 01/15/21 10:26 Dose: 600 mg Documented by: Magnesium Hydroxide (Magnesium Hydroxide 400 Mg/5 Ml Susp 30 Ml Cup) 30 ml PO BEDTIME PRN PRN Reason: Constipation Prenat Multivit/[place]/Iron/Folic Ac ( Multivitamin With Calcium/Folic A wilmer/Iron Tab) 1 each PO DAILY RANDAL Last Admin: 01/15/21 10:28 Dose: 1 each Documented by: Anisa Olson (Anisa Olson Medicated Pads 40/Jar) 1 pad TOP ASDIRECTED PRN PRN Reason: Perineal Comfort Measure Last Admin: 01/13/21 22:20 Dose: 1 applic Documented by: Discontinued Medications Acetaminophen (Acetaminophen 325 Mg Tab) 650 mg PO Q6H PRN PRN Reason: Pain (Mild 1-3) and fever Diphenhydramine HCl (Diphenhydramine 50 Mg/Ml Sdv) 25 mg IVPUSH Q6H PRN PRN Reason: pruritis Ephedrine Sulfate (Ephedrine 50 Mg/Ml Sdv) 5 mg IVPUSH ASDIRECTED PRN PRN Reason: Hypotension Fentanyl (Fentanyl 100 Mcg/2 Ml Sdv) 100 mcg EPIDUR Q3H PRN PRN Reason: Pain Last Admin: 01/13/21 02:09 Dose: 100 mcg Documented by: Fentanyl/Bupivacaine HCl (Bupivacaine/Fentanyl/Ns 100 Ml Bag) 100 ml EPIDUR ASDIRECTED PRN PRN Reason: Pain Last Admin: 01/13/21 11:21 Dose: 100 ml Documented by: Ferrous Sulfate (Ferrous Sulfate 324 Mg Tab.Ec) 324 mg PO WITHBREAKFAST RANDAL Last Admin: 01/14/21 09:59 Dose: 324 mg Documented by: Oxytocin/Lactated Ringer's (Pitocin In Lr 10 Units/1,000 Ml) 10 unit in 1,000 mls @ 100 mls/hr IV .CONTINUOUS RANDAL Lactated Ringer's (Ringers, Lactated) 1,000 mls @ 100 mls/hr IV ASDIRECTED RANDAL Last Admin: 01/13/21 11:22 Dose: 100 mls/hr Documented by: Oxytocin/Lactated Ringer's (Pitocin In Lr 10 Units/1,000 Ml) 10 unit in 1,000 mls @ 12 mls/hr IV TITRATE RANDAL; Protocol Last Titration: 01/13/21 17:48 Dose: 10 munits/min, 60 mls/hr Documented by: Lidocaine/Epinephrine (Lidocaine 1.5% With Epinephrine 1:200,000 5 Ml Amp) 5 ml .ROUTE .[facility] ONE Stop: 01/13/21 18:01 Nalbuphine HCl (Nalbuphine 10 Mg/1 Ml Vial) 10 mg IVPUSH Q2H PRN PRN Reason: Pain Ondansetron HCl (Ondansetron 4 Mg/2 Ml Sdv) 4 mg IVPUSH Q8H PRN PRN Reason: Nausea/Vomiting Last Admin: 01/13/21 09:52 Dose: 4 mg Documented by: Sodium Chloride (Sodium Chloride 0.9% 10 Ml Syringe) 10 ml FLUSH ASDIRECTED PRN PRN Reason: Keep Vein Open
== END 2021-01-15 13:07 | disposition home or self-care (01) | DRG 560 ==
LOC: JD.OBCHECK 22:31 → JD.OB 22:34 → JD.OBCHECK 23:21 → JD.OB 23:22 → OBSVTOIN 01-13 19:07 → JD.OB 01-13 19:08
PROVIDERS: ADMIT Obstetrics & Gynecology; ATTEND Obstetrics & Gynecology
PROC: 10D07Z6 Extraction of Products of Conception, Vacuum, Via Natural or Artificial Opening (ICD-10-PCS; principal; 2021-01-13)
PROC: 10907ZC Drainage of Amniotic Fluid, Therapeutic from Products of Conception, Via Natural or Artificial Opening (ICD-10-PCS; 2021-01-13)
PROC: 0KQM0ZZ Repair Perineum Muscle, Open Approach (ICD-10-PCS; 2021-01-13)
PROC: 0UQMXZZ Repair Vulva, External Approach (ICD-10-PCS; 2021-01-13)
PROC: 3E0R3BZ Introduction of Anesthetic Agent into Spinal Canal, Percutaneous Approach (ICD-10-PCS; 2021-01-13)
PROC: 00HU33Z Insertion of Infusion Device into Spinal Canal, Percutaneous Approach (ICD-10-PCS; 2021-01-13)
DX: O34.211 Maternal care for low transverse scar from previous cesarean delivery (principal); Z37.0 Single live birth; O70.1 Second degree perineal laceration during delivery; O77.0 Labor and delivery complicated by meconium in amniotic fluid; O99.52 Diseases of the respiratory system complicating childbirth; J45.909 Unspecified asthma, uncomplicated; Z20.822 Contact with and (suspected) exposure to COVID-19; Z79.899 Other long term (current) drug therapy; Z3A.40 40 weeks gestation of pregnancy; Z88.1 Allergy status to other antibiotic agents
CPT/HCPCS: 01967; 36415; 51702; 59025; 59409; 80053; 82570; 84156; 85025; 85027; 86592; 86850; 86900; 86901; A9270-GY; J2405; J2590; J3010; J7120; U0002

== ENCOUNTER 2022-10-13 04:26 | Inpatient (IN) | payer BC ==
[~2022-10-13 04:26] MED LIST: Lidocaine 1% 10 ML MDV ONE
[2022-10-13] MEDS ORDERED: Lidocaine 1% 50 ML MDV INJECT ONE (04:35)
[2022-10-13] MEDS ORDERED: Nalbuphine 10 MG/0.5 ML Syringe IVPUSH PRN (04:35)
[2022-10-13] MEDS ORDERED: Acetaminophen 325 MG Tab PO PRN ×2 (04:35→15:00)
[2022-10-13] MEDS ORDERED: Calcium Carbonate 500 MG Tab.Chew PO PRN (04:35)
[2022-10-13] MEDS ORDERED: Sodium Chloride 0.9% 10 ML Syringe FLUSH PRN (04:35)
[2022-10-13] MEDS ORDERED: Oxytocin/Lactated Ringers 10 UNIT/1,000 ML BAG IV SCH ×2 (04:45→10:00)
[2022-10-13 04:50] LABS: BASOPHILS PERCENT AUTO 0.1 % (0.0-1.0); EOSINOPHILS PERCENT AUTO 0.5 % (0.0-6.0); HEMATOCRIT 37.4 % (37.0-47.0); HEMOGLOBIN 12.9 gm/dl (12.0-16.0); IMMATURE GRAN ABSOLUTE AUTO 0.04 K/mm3 (0.00-0.05); IMMATURE GRAN PERCENT AUTO 0.5 % (0.0-0.4); LYMPHOCYTES ABSOLUTE AUTO 1.7 K/mm3 (1.0-4.8); LYMPHOCYTES PERCENT AUTO 20.9 % (24.0-44.0); MEAN CORPUSCULAR HGB CONC 34.5 g/dl (32.0-36.0); MEAN CORPUSCULAR VOLUME 92.8 fl (83.0-99.0); MEAN PLATELET VOLUME 10.4 fl (9.4-12.3); MONOCYTES ABSOLUTE AUTO 0.6 K/mm3 (0.0-0.8); MONOCYTES PERCENT AUTO 7.7 % (0.0-8.0); NEUTROPHILS ABSOLUTE AUTO 5.6 K/mm3 (1.8-7.7); NEUTROPHILS PERCENT AUTO 70.3 % (41.0-71.0); PLATELET COUNT,PLT 171 K/mm3 (150-400); RED BLOOD CELL COUNT 4.03 M/mm3 (4.10-5.30); WHITE BLOOD CELL COUNT,WBC 8.03 K/mm3 (3.9-11.3)
[2022-10-13] MEDS: Lactated Ringers 1,000 ML IV SCH ×2 (05:00→07:24)
[2022-10-13] MEDS ORDERED: diphenhydrAMINE 50 MG/ML SDV IVPUSH PRN (06:30)
[2022-10-13] MEDS ORDERED: Bupivacaine/fentaNYL/NS 100 ML Bag EPIDUR PRN (06:30)
[2022-10-13] MEDS ORDERED: ePHEDrine 50 MG/ML SDV IVPUSH PRN (06:30)
[2022-10-13] MEDS: fentaNYL 100 MCG/2 ML SDV EPIDUR PRN ×2 (06:40→12:04)
[2022-10-13] MEDS ORDERED: Lidocaine 2% with EPINEPHrine 1:200,000 20 ML SDV ONE (11:53)
[2022-10-13] MEDS ORDERED: Dexmedetomidine 200 MCG/2 ML SDV ONE (11:53)
[2022-10-13] MEDS ORDERED: fentaNYL 100 MCG/2 ML SDV ONE (11:58)
[2022-10-13] MEDS ORDERED: Ondansetron 4 MG/2 ML SDV IVPUSH ONE (13:50)
[2022-10-13] MEDS ORDERED: Benzocaine/Menthol 20%-0.5% Spray 78 GM Cannister TOP PRN (15:00)
[2022-10-13] MEDS ORDERED: Docusate Sodium 100 MG Cap PO PRN (15:00)
[2022-10-13] MEDS ORDERED: Witch Hazel Medicated Pads 40/Jar TOP PRN (15:00)
[2022-10-13] MEDS: Ibuprofen 600 MG Tab PO PRN (18:02)
[2022-10-14] MEDS: Ibuprofen 600 MG Tab PO PRN (01:35)
== END 2022-10-14 14:00 | disposition home or self-care (01) | DRG 560 ==
LOC: JD.OBCHECK 04:26 → JD.OB 04:26 → JD.OBCHECK 04:35 → OBSVTOIN 13:25 → JD.OB 14:41
PROVIDERS: ADMIT Obstetrics & Gynecology; ATTEND Obstetrics & Gynecology
PROC: 10E0XZZ Delivery of Products of Conception, External Approach (ICD-10-PCS; principal; 2022-10-13)
PROC: 0HQ9XZZ Repair Perineum Skin, External Approach (ICD-10-PCS; 2022-10-13)
PROC: 3E0R3BZ Introduction of Anesthetic Agent into Spinal Canal, Percutaneous Approach (ICD-10-PCS; 2022-10-13)
PROC: 00HU33Z Insertion of Infusion Device into Spinal Canal, Percutaneous Approach (ICD-10-PCS; 2022-10-13)
DX: O48.0 Post-term pregnancy (principal); O42.02 Full-term premature rupture of membranes, onset of labor within 24 hours of rupture; O99.02 Anemia complicating childbirth; D64.9 Anemia, unspecified; O70.0 First degree perineal laceration during delivery; Z37.0 Single live birth; Z79.82 Long term (current) use of aspirin; Z3A.40 40 weeks gestation of pregnancy; Z56.0 Unemployment, unspecified
CPT/HCPCS: 36415; 51702; 59025; 59409; 85025; 86592; 86850; 86900; 86901; A9270-GY; J2590; J3010; J3490; J7120